=== PATIENT | male | born 1960 | race Hispanic/Latino ===

== ENCOUNTER 2020-07-11 21:05 | Emergency (ER) | payer OTHER ==
[~2020-07-11] VITALS: Ht 167.6 cm; Wt 81.6 kg
[2020-07-11] MEDS ORDERED: TRIMETHOPRIM/SULFAMETHOXAZOLE 160-800 MG TAB PO ONE (22:00)
[2020-07-11] MEDS ORDERED: MOTRIN800 MG PO (22:02)
[2020-07-11] MEDS ORDERED: BACTRIM DS TAB1 EACH PO (22:02)
[2020-07-11 22:30] VITALS: BP 153/92
[2020-07-11] MEDS ORDERED: TRIMETHOPRIM/SULFAMETHOXAZOLE 160-800 MG TAB ONE (22:32)
== END 2020-07-11 22:28 | disposition home or self-care (01) ==
LOC: FSED 21:20
DX: T81.30XA Disruption of wound, unspecified, initial encounter (principal); E11.65 Type 2 diabetes mellitus with hyperglycemia; I10 Essential (primary) hypertension
CPT/HCPCS: 99283